=== PATIENT | female | born 1985 | race Caucasian/White ===

== ENCOUNTER 2016-07-31 13:43 | Emergency (ER) | payer OTHER ==
[~2016-07-31 13:43] MED LIST: ACETAMINOPHEN PO; AMOXICILLIN500 M1 PO; ATIVAN PO; CIPRO PO; DIFLUCAN PO; EFFEXOR37.5 MG PO; K-DUR20 ME1 PO; KEFLEX500 MG PO; LEVAQUIN PO; LORTAB 7.51 TAB 7.5/ DOB; NAPROSYN500 MG PO; NO MEDICATIONS; PERCOCET 5-3251 TAB PO; PHENERGAN PO; PHENERGAN PR; PHENERGAN25 MG PO; ULTRAM PO; VICODIN PO; VOLTAREN50 MG PO
[2016-07-31] MEDS ORDERED: NO MEDICATIONS (13:51)
== END 2016-07-31 14:46 | disposition left against medical advice (07) ==
LOC: SED 13:43
DX: Z53.21 Procedure and treatment not carried out due to patient leaving prior to being seen by health care provider (principal)